=== PATIENT | female | born 1965 | race Asian ===

== ENCOUNTER 2023-05-03 06:19 | Day surgery (SDC) | payer OTHER ==
[~2023-05-03] VITALS: Ht 157.5 cm; Wt 57.6 kg
[2023-05-03] MEDS ORDERED: MIDAZOLAM HCL 5 MG/5 ML VIAL ONE (06:25)
[2023-05-03] MEDS ORDERED: MEPERIDINE 100 MG INJ. 100 MG/ML VIAL ONE (06:25)
[2023-05-03 09:21] VITALS: O2SAT 98
[2023-05-03 15:37] VITALS: BP_SYST 114; PULSE 58; RESP 12
== END 2023-05-03 10:37 | disposition home or self-care (01) ==
LOC: SDS 06:19 → SMU 06:21 → SDS 10:37
PROVIDERS: ATTEND Internal Medicine Gastroenterology
DX: K59.00 Constipation, unspecified (principal); R10.9 Unspecified abdominal pain; K21.00 Gastro-esophageal reflux disease with esophagitis, without bleeding; R10.13 Epigastric pain; K31.89 Other diseases of stomach and duodenum; K29.50 Unspecified chronic gastritis without bleeding; E03.9 Hypothyroidism, unspecified; G47.30 Sleep apnea, unspecified; Z90.89 Acquired absence of other organs; Z88.6 Allergy status to analgesic agent; Z79.890 Hormone replacement therapy; Z79.899 Other long term (current) drug therapy; Z86.010 Personal history of colon polyps
CPT/HCPCS: 45378; 43239; 99152; 87081; 36415; 88305; 88312; 88313; G0378; J2250; J2175; 88160